=== PATIENT | female | born 1985 | race American Indian/Alaskan Native ===

== ENCOUNTER 2021-06-13 20:53 | Emergency (ER) | payer SELFPAY ==
[2021-06-13] MEDS ORDERED: IBUPROFEN 800 MG TAB PO ONE (22:43)
[2021-06-13] MEDS ORDERED: ONDANSETRON 4 MG ODT TAB PO ONE (22:43)
[2021-06-13] MEDS ORDERED: BUTALB/ACETAMINOPHEN/CAFFEINE TAB PO ONE (22:43)
--- NOTE | 2021-06-13 22:56 | Emergency Department Report ---
ED Headache HPI - General Chief Complaint: Headache Stated Complaint: MIGRAINE Source: patient Exam Limitations: no limitations - History of Present Illness Initial Comments: Patient is a 35-year-old -Thai female with a history migraine headaches who presents to the ED with complaint of acute onset persistent intractable parietal scalp headache intermittently for the last 2 weeks, worse in the last 3 days. Patient states that she has not taken any medications because she does not believe in taking medications for headache. Patient states that due to persistent headache she has felt generalized weakness and fatigue. Patient denies nausea, vomiting, change in vision, neck pain, cough, nasal and sinus congestion, chest pain or shortness of breath, dizziness, syncope, seizures, fever and chills, fall or traumatic injury. Timing/Duration: constant, waxing and waning, other (2 weeks) Quality: severe, sharp, throbbing Head Injury Location: parietal Recent Head Trauma: no recent headache/trauma Associated Symptoms: denies symptoms, weakness. denies: confusion, fatigue, facial pain, fever/chills, loss of consciousness, nasal congestion, nasal drainage, numbness in legs/feet, rash, seizures, sinus infection, stiff neck, vision changes, other Allergies/Adverse Reactions: Allergies morphine Allergy (Verified 06/13/21 22:38) Hives Home Medications: Ambulatory Orders Butalb/Acetamin/Caff 50-325-40 [Fioricet 50-325-40] 1 - 2 tab PO Q6HR PRN #12 tab 06/13/21 Ibuprofen [Motrin] 800 mg PO Q8HR PRN #30 tablet 06/13/21 ED Review of Systems ROS: Stated complaint: MIGRAINE Other details as noted in HPI Constitutional: malaise, weakness. denies: chills, fever Eyes: denies: eye pain, eye discharge, vision change ENT: denies: ear pain, throat pain Respiratory: denies: cough, shortness of breath, wheezing Cardiovascular: denies: chest pain, palpitations Endocrine: no symptoms reported Gastrointestinal: denies: abdominal pain, nausea, diarrhea Genitourinary: denies: urgency, dysuria, discharge Musculoskeletal: denies: back pain, joint swelling, arthralgia Skin: denies: rash, lesions Neurological: headache. denies: weakness, paresthesias Psychiatric: denies: anxiety, depression Hematological/Lymphatic: denies: easy bleeding, easy bruising ED Past Medical Hx - Past Medical History Previous Medical History?: Yes Hx Headaches / Migraines: Yes - Surgical History Past Surgical History?: Yes Additional Surgical History: X 3 - Social History Smoking Status: Current Every Day Smoker Substance Use Type: None - Medications Home Medications: Home Medications Medication Instructions Recorded Confirmed Last Taken Type Butalb/Acetamin/Caff 50-325-40 1 - 2 tab PO Q6HR PRN #12 tab 06/13/21 Unknown Rx [Fioricet 50-325-40] Ibuprofen [Motrin] 800 mg PO Q8HR PRN #30 tablet 06/13/21 Unknown Rx ED Physical Exam - General Limitations: No Limitations General appearance: alert, in no apparent distress - Head Head exam: Present: atraumatic, normocephalic, normal inspection - Eye Eye exam: Present: normal appearance, PERRL, EOMI Pupils: Present: normal accommodation - ENT ENT exam: Present: normal exam, normal orophraynx, mucous membranes moist, TM's normal bilaterally, normal external ear exam - Neck Neck exam: Present: normal inspection, full ROM - Respiratory Respiratory exam: Present: normal lung sounds bilaterally. Absent: respiratory distress, wheezes, rales, stridor, chest wall tenderness, accessory muscle use, decreased breath sounds, prolonged expiratory - Cardiovascular Cardiovascular Exam: Present: regular rate, normal rhythm, normal heart sounds. Absent: systolic murmur, diastolic murmur, rubs, gallop - GI/Abdominal GI/Abdominal exam: Present: soft, normal bowel sounds. Absent: tenderness, guarding, rebound, hyperactive bowel sounds, hypoactive bowel sounds, mass, bruit - Extremities Exam Extremities exam: Present: normal inspection, full ROM, normal capillary refill - Back Exam Back exam: Present: normal inspection, full ROM. Absent: tenderness, CVA tenderness (R), CVA tenderness (L), muscle spasm, paraspinal tenderness, vertebral tenderness, rash noted - Neurological Exam Neurological exam: Present: alert, oriented X3 - Psychiatric Psychiatric exam: Present: normal affect, normal mood - Skin Skin exam: Present: warm, dry, intact, normal color. Absent: rash ED Course Vital Signs 06/13/21 22:24 Temperature 97.7 F Pulse Rate 83 Respiratory 18 Rate Blood Pressure 125/71 O2 Sat by Pulse 99 Oximetry ED Medical Decision Making - Medical Decision Making This is a 35-year-old -Thai female with a history migraine headaches who presents to the ED with complaint of acute onset persistent intractable parietal scalp headache intermittently for the last 2 weeks, worse in the last 3 days. Patient states that she has not taken any medications because she does not believe in taking medications for headache. Patient states that due to persistent headache she has felt generalized weakness and fatigue. In the ED, patient is alert and oriented x3 and is not in any distress. Patient was treated for pain in the ED with anti-inflammatory medications for pain. On reevaluation, patient headache improved significantly and resolved with medications. Patient has not had any neurological symptoms and the physical exam is unremarkable. Patient was discharged home on pain medications and advised to follow-up with her primary care physician in 7 to 10 days for reevaluation. Patient was advised return to the ED immediately if symptoms get worse. - Differential Diagnosis Migraine headache; Tension headache; Cluster headache; Critical care attestation.: If time is entered above; I have spent that time in minutes in the direct care of this critically ill patient, excluding procedure time. ED Disposition Clinical Impression: Acute tension headache Qualifiers: Intractability: not intractable Qualified Code(s): G44.209 - Tension-type headache, unspecified, not intractable Migraine headache without aura Qualifiers: Status migrainosus presence: without status migrainosus Intractability: not intractable Qualified Code(s): G43.009 - Migraine without aura, not intractable, without status migrainosus Disposition: 01 HOME / SELF CARE / HOMELESS Is pt being admited?: No Does the pt Need Aspirin: No Condition: Stable Instructions: Migraine Headache, Enfr-uv-[id number], Tension Headache, Adult, [id number] Additional Instructions: Take medication with food, drink plenty of fluids and follow-up with your primary care physician in 7 to 10 days for reevaluation. Return to the ED immediately if symptoms get worse. Prescriptions: Butalb/Acetamin/Caff 50-325-40 [Fioricet 50-325-40] 1 - 2 tab PO Q6HR PRN #12 tab PRN Reason: Headache Ibuprofen [Motrin] 800 mg PO Q8HR PRN #30 tablet PRN Reason: Pain , Severe (7-10) Referrals: [facility] [Provider Group] - 7-10 days Time of Disposition: 22:57 Print Language: SOUTH AFRICAN
[2021-06-14 00:04] VITALS: BP 132/64
== END 2021-06-14 00:03 | disposition home or self-care (01) ==
LOC: ED 20:53
DX: G44.209 Tension-type headache, unspecified, not intractable (principal); G43.009 Migraine without aura, not intractable, without status migrainosus; Z98.890 Other specified postprocedural states; F17.200 Nicotine dependence, unspecified, uncomplicated
CPT/HCPCS: 99282; J3490; Q0162

== ENCOUNTER 2021-06-29 09:20 | Emergency (ER) | payer SELFPAY ==
[2021-06-29] MEDS ORDERED: SODIUM CHLORIDE 0.9% 1000 ML 1,000 ML IV ONE (09:22)
[2021-06-29] MEDS ORDERED: ONDANSETRON 4 MG/2 ML INJ IV ONE (09:23)
--- NOTE | 2021-06-29 09:26 | Emergency Department Report ---
ED N/V/D HPI - General Chief complaint: Nausea/Vomiting/Diarrhea Stated complaint: N/V x7 days Time Seen by Provider: 06/29/21 09:22 Source: EMS Mode of arrival: Stretcher Limitations: No Limitations - History of Present Illness Initial comments: Patient presents by ambulance secondary to nausea, vomiting, and diarrhea. She has had symptoms about 7 days. There has been no hematemesis or coffee-ground emesis. Has no melenic stool. She does report some abdominal cramps in the upper abdomen. She has not been around anyone that has been sick. She has not eaten anything that tasted bad or unusual. She has had no sick contacts. Patient has not been on antibiotics. EMS did start an IV. They noted her blood sugar was 56. They transported the patient here. She had not vomited for them. Patient has not been out of the country. She states that she does not know what triggered her GI upset. - Related Data Previous Rx's Medication Instructions Recorded Last Taken Type Butalb/Acetamin/Caff 50-325-40 1 - 2 tab PO Q6HR PRN #12 tab 06/13/21 Unknown Rx [Fioricet 50-325-40] Ibuprofen [Motrin] 800 mg PO Q8HR PRN #30 tablet 06/13/21 Unknown Rx Ondansetron [Zofran ODT TAB] 8 mg PO Q8HR PRN #20 tab.rapdis 06/29/21 Unknown Rx Allergies Allergy/AdvReac Type Severity Reaction Status Date / Time morphine Allergy Hives Verified 06/13/21 22:38 ED Review of Systems ROS: Stated complaint: N/V x7 days Other details as noted in HPI Comment: All other systems reviewed and negative Constitutional: denies: fever Eyes: denies: vision change ENT: denies: throat pain Respiratory: denies: cough Cardiovascular: denies: chest pain Endocrine: denies: unexplained weight loss Gastrointestinal: as per HPI Genitourinary: denies: dysuria Musculoskeletal: denies: back pain Skin: denies: rash Neurological: headache (Today) Hematological/Lymphatic: denies: easy bruising ED Past Medical Hx - Past Medical History Hx Headaches / Migraines: Yes - Surgical History Additional Surgical History: X 3 - Family History Family history: no significant - Social History Smoking Status: Current Every Day Smoker (We discussed tobacco cessation) Substance Use Type: None - Medications Home Medications: Home Medications Medication Instructions Recorded Confirmed Last Taken Type Butalb/Acetamin/Caff 50-325-40 1 - 2 tab PO Q6HR PRN #12 tab 06/13/21 Unknown Rx [Fioricet 50-325-40] Ibuprofen [Motrin] 800 mg PO Q8HR PRN #30 tablet 06/13/21 Unknown Rx Ondansetron [Zofran ODT TAB] 8 mg PO Q8HR PRN #20 tab.rapdis 06/29/21 Unknown Rx ED Physical Exam - General Limitations: No Limitations, Other (Pulse ox noted and normal) General appearance: alert, in no apparent distress - Head Head exam: Present: atraumatic, normocephalic - Eye Eye exam: Present: normal appearance, PERRL, EOMI. Absent: scleral icterus - ENT ENT exam: Present: mucous membranes dry, normal external ear exam - Neck Neck exam: Present: normal inspection. Absent: meningismus - Respiratory Respiratory exam: Present: normal lung sounds bilaterally. Absent: respiratory distress - Cardiovascular Cardiovascular Exam: Present: regular rate, normal rhythm - GI/Abdominal GI/Abdominal exam: Present: soft, tenderness (Epigastric). Absent: guarding, rebound - Extremities Exam Extremities exam: Present: normal capillary refill - Back Exam Back exam: Absent: CVA tenderness (R), CVA tenderness (L) - Neurological Exam Neurological exam: Present: alert, oriented X3, CN II-XII intact. Absent: motor sensory deficit - Psychiatric Psychiatric exam: Present: normal affect, normal mood - Skin Skin exam: Present: warm, dry ED Course Vital Signs 06/29/21 09:23 Temperature 98.7 F Pulse Rate 88 Respiratory 16 Rate Blood Pressure 118/76 [Right] O2 Sat by Pulse 99 Oximetry - Reevaluation(s) Reevaluation #2: 06/29/21 09:26 EMS was met upon arrival. IV and labs were ordered. Old records noted. Reevaluation #3: 06/29/21 11:05 Symptoms improved and the patient was discharged. She was tolerating juice and crackers. ED Medical Decision Making - Lab Data Result diagrams: 06/29/21 09:35 06/29/21 09:35 - Medical Decision Making Patient presented with nausea, vomiting, and diarrhea. She has no evidence of GI bleed. There is no distention or tympany to suggest bowel obstruction. She has no peritoneal finding on exam. There is no tenderness in the right lower quadrant to suggest appendicitis. She has no tenderness in the right upper quadrant to suggest biliary colic. She is not jaundiced. She does not have evidence of hepatitis or pancreatitis. This could very well be viral in nature. She has been treated symptomatically, feeling better, and was referred for outpatient evaluation for follow-up. Critical Care Time: No Critical care attestation.: If time is entered above; I have spent that time in minutes in the direct care of this critically ill patient, excluding procedure time. ED Disposition Clinical Impression: Nausea vomiting and diarrhea, Dehydration Disposition: HOME / SELF CARE / HOMELESS Is pt being admited?: No Condition: Stable Instructions: Food Choices to Help Relieve Diarrhea, Adult, Dehydration, Adult, [id number], Nausea and Vomiting, Adult Additional Instructions: Have a bland diet. Drink water. Return for problems. Follow-up with your family doctor or the referral doctor for recheck. Prescriptions: Ondansetron [Zofran ODT TAB] 8 mg PO Q8HR PRN #20 tab.rapdis PRN Reason: Nausea Referrals: PRIMARY CARE, [Referring] - 3-5 Days LUDY WILSON MD [Staff Physician] - 3-5 Days
[2021-06-29 09:50] LABS: Hematocrit 42.3 % (30.3-42.9); Hemoglobin 14.5 gm/dl (10.1-14.3); Mean Corpuscular HGB Conc 34 % (30-34); Mean Corpuscular Volume 87 fl (79-97); Platelet Count 319 K/mm3 (140-440); Red Blood Count 4.89 M/mm3 (3.65-5.03); Red Cell Distribution Width 13.8 % (13.2-15.2)
[2021-06-29 10:13] LABS: Alanine Aminotransferase 8 units/L (7-56); BUN/Creatinine Ratio 12; Blood Urea Nitrogen 13 mg/dL (7-17); Hemolysis Index 11
[2021-06-29 11:41] VITALS: BP 124/74
== END 2021-06-29 11:40 | disposition home or self-care (01) ==
LOC: ED 09:20
DX: R11.2 Nausea with vomiting, unspecified (principal); R19.7 Diarrhea, unspecified; E86.0 Dehydration; G43.909 Migraine, unspecified, not intractable, without status migrainosus; Z91.09 Other allergy status, other than to drugs and biological substances; F17.200 Nicotine dependence, unspecified, uncomplicated
CPT/HCPCS: 36415; 80053; 83690; 84703; 85027; 96361; 96374; 99283; J2405

== ENCOUNTER 2021-07-31 07:57 | Emergency (ER) | payer SELFPAY ==
[2021-07-31] MEDS ORDERED: DEXAMETHASONE 4 MG TAB PO ONE (11:56)
[2021-07-31] MEDS ORDERED: KETOROLAC 10 MG TAB PO ONE (11:56)
--- NOTE | 2021-07-31 15:22 | XRay Report ---
CHEST 2 VIEWS INDICATION / CLINICAL INFORMATION: sob. COMPARISON: None available. FINDINGS: SUPPORT DEVICES: None. HEART / MEDIASTINUM: No significant abnormality. LUNGS / PLEURA: No significant pulmonary or pleural abnormality. No pneumothorax. ADDITIONAL FINDINGS: No significant additional findings. IMPRESSION: 1. No acute findings. Signer Name: Ryan Montero MD Signed: 07/31/2021 3:18 PM Workstation Name: [email or web address]
--- NOTE | 2021-07-31 15:37 | Emergency Department Report ---
ED Shortness of Breath HPI - General Chief Complaint: Adult Asthma Stated Complaint: ALIYAH Time Seen by Provider: 07/31/21 11:53 Source: patient, EMS Mode of arrival: Stretcher Limitations: No Limitations - History of Present Illness Initial Comments: 36-year-old black female with no past medical history presents to the emergency department for evaluation of shortness of breath. She states that for the past 2 months, every time someone smokes around her or if she smokes a cigarette she has shortness of breath and tightness in her chest. She states that is intermittent but it happens every time. She states that she has been having persistent shortness of breath for the past day or so with intermittent pain in her chest. She states that she only has pain in her chest when she breathes deep or moves around. She denies nausea, vomiting, dizziness, diaphoresis, and fever. She states that she has not taken any medications for her symptoms MD Complaint: shortness of breath, cough, chest pain, pain with inspiration -: Gradual, month(s) (To) Severity: severe Pain Scale: 10 Quality: aching Consistency: intermittent Worsens With: movement, coughing, inspiration Associated Symptoms: chest pain, pain with inspiration, cough Treatments Prior to Arrival: none - Related Data Home Oxygen Therapy: No Previous Rx's Medication Instructions Recorded Last Taken Type Butalb/Acetamin/Caff 50-325-40 1 - 2 tab PO Q6HR PRN #12 tab 06/13/21 Unknown Rx [Fioricet 50-325-40] Ibuprofen [Motrin] 800 mg PO Q8HR PRN #30 tablet 06/13/21 Unknown Rx Ondansetron [Zofran ODT TAB] 8 mg PO Q8HR PRN #20 tab.rapdis 06/29/21 Unknown Rx Prednisone [predniSONE 10 mg 10 mg PO .TAPER #1 pack 07/31/21 Unknown Rx (6-Day Pack, 21 Tabs)] Allergies Allergy/AdvReac Type Severity Reaction Status Date / Time No Known Allergies Allergy Unverified 07/31/21 08:03 ED Review of Systems ROS: Stated complaint: ALIYAH Other details as noted in HPI Constitutional: no symptoms reported. denies: chills, fever ENT: congestion Respiratory: cough, shortness of breath. denies: SOB with exertion, SOB at rest, wheezing Cardiovascular: chest pain. denies: palpitations, dyspnea on exertion, orthopnea, edema, syncope, paroxysmal nocturnal dyspnea Gastrointestinal: denies: abdominal pain, nausea, vomiting, diarrhea, constipation, hematemesis, melena, hematochezia Genitourinary: denies: urgency, dysuria, frequency, hematuria, discharge, abno rmal menses Skin: denies: rash, lesions Neurological: denies: headache, weakness, numbness, paresthesias, confusion, abnormal gait ED Past Medical Hx - Past Medical History Hx Headaches / Migraines: Yes - Surgical History Additional Surgical History: X 3 - Social History Smoking Status: Current Every Day Smoker (We discussed tobacco cessation) Substance Use Type: None - Medications Home Medications: Home Medications Medication Instructions Recorded Confirmed Last Taken Type Butalb/Acetamin/Caff 50-325-40 1 - 2 tab PO Q6HR PRN #12 tab 06/13/21 Unknown Rx [Fioricet 50-325-40] Ibuprofen [Motrin] 800 mg PO Q8HR PRN #30 tablet 06/13/21 Unknown Rx Ondansetron [Zofran ODT TAB] 8 mg PO Q8HR PRN #20 tab.rapdis 06/29/21 Unknown Rx Prednisone [predniSONE 10 mg 10 mg PO .TAPER #1 pack 07/31/21 Unknown Rx (6-Day Pack, 21 Tabs)] ED Physical Exam - General Limitations: No Limitations General appearance: alert, in no apparent distress - Head Head exam: Present: atraumatic, normocephalic - Eye Eye exam: Present: normal appearance. Absent: conjunctival injection - Neck Neck exam: Present: normal inspection, full ROM. Absent: tenderness, lymphadenopathy - Respiratory Respiratory exam: Present: normal lung sounds bilaterally, chest wall tenderne ss. Absent: respiratory distress, wheezes, rales, rhonchi, stridor, accessory muscle use - Cardiovascular Cardiovascular Exam: Present: regular rate, normal heart sounds - GI/Abdominal GI/Abdominal exam: Present: soft, normal bowel sounds. Absent: distended, tenderness, guarding, rebound, rigid - Extremities Exam Extremities exam: Present: normal inspection, normal capillary refill. Absent: pedal edema, joint swelling, calf tenderness - Back Exam Back exam: Present: normal inspection. Absent: tenderness, CVA tenderness (R), CVA tenderness (L), paraspinal tenderness, vertebral tenderness - Neurological Exam Neurological exam: Present: alert, oriented X3, CN II-XII intact, normal gait, reflexes normal. Absent: motor sensory deficit - Psychiatric Psychiatric exam: Present: normal affect, normal mood - Skin Skin exam: Present: warm, dry, intact, normal color ED Course Vital Signs 07/31/21 07/31/21 08:02 16:29 Temperature 98.7 F Pulse Rate 90 66 Respiratory 18 16 Rate Blood Pressure 118/82 [Left] Blood Pressure 116/70 [Right] O2 Sat by Pulse 99 100 Oximetry - Reevaluation(s) Reevaluation #1: 07/31/21 16:00 Patient states that shortness of breath and chest pain has resolved, and she feels much better. ED Medical Decision Making - Medical Decision Making 36-year-old black female with no past medical history presents to the emergency department for evaluation of shortness of breath. She states that for the past 2 months, every time someone smokes around her or if she smokes a cigarette she has shortness of breath and tightness in her chest. She states that is intermittent but it happens every time. She states that she has been having persistent shortness of breath for the past day or so with intermittent pain in her chest. She states that she only has pain in her chest when she breathes deep or moves around. She denies nausea, vomiting, dizziness, diaphoresis, and fever. She states that she has not taken any medications for her symptoms. Chest x-ray without any acute abnormalities noted. Symptoms resolved after medication. Patient will be discharged home with prednisone pack and advised to follow-up with primary care provider if worsening symptoms or to the ER for any concerning symptoms. She was advised to stop smoking. She verbalized understanding of and agreement with plan of care. Critical care attestation.: If time is entered above; I have spent that time in minutes in the direct care of this critically ill patient, excluding procedure time. ED Disposition Clinical Impression: SOB (shortness of breath), Chest wall tenderness Disposition: HOME / SELF CARE / HOMELESS Is pt being admited?: No Does the pt Need Aspirin: No Condition: Stable Instructions: Shortness of Breath, Adult, [id number], Chest Wall Pain, [id number] Additional Instructions: Take medications as prescribed. Follow-up with primary care provider if worsening symptoms. Return to the emergency department as needed. Prescriptions: Prednisone [predniSONE 10 mg (6-Day Pack, 21 Tabs)] 10 mg PO .TAPER #1 pack Referrals: TATE DAVEY MD [Referring] - 3-5 Days HETAL MIRANDA MD [Staff Physician] - 3-5 Days Forms: Work/School Release Form(ED) Time of Disposition: 15:36
[2021-07-31 16:30] VITALS: BP 116/70
== END 2021-07-31 16:30 | disposition home or self-care (01) ==
LOC: ED 07:57
DX: R06.02 Shortness of breath (principal); R07.89 Other chest pain; G43.909 Migraine, unspecified, not intractable, without status migrainosus; F17.200 Nicotine dependence, unspecified, uncomplicated; Z98.890 Other specified postprocedural states; Z79.899 Other long term (current) drug therapy
CPT/HCPCS: 71046; 99283; J8540